=== PATIENT | female | born 1975 | race Caucasian/White ===

== ENCOUNTER 2019-11-28 07:02 | Day surgery (SDC) | payer BC ==
[~2019-11-28 07:02] MED LIST: Lactated Ringers 1,000 ML IV SCH; Lidocaine 1%/Sod Bicarbonate in NS 8.4% 1 ML Syringe IDERM PRN; Sodium Chloride 0.9% 10 ML Syringe FLUSH PRN
[2019-11-28] MEDS ORDERED: Bupivacaine 0.5%/EPINEPHrine 1:200,000 50 ML MDV ONE (07:13)
[2019-11-28] MEDS ORDERED: Clindamycin Phosphate in D5W 900 MG in Premix Bag 1 BAG IV ONE ×2 (07:15)
[2019-11-28] MEDS ORDERED: Propofol 200 MG/20 ML SDV ONE ×4 (07:18→10:46)
[2019-11-28] MEDS ORDERED: Midazolam 1 MG/ML 2 ML SDV ONE (07:18)
[2019-11-28] MEDS ORDERED: Lidocaine 1% 2 ML ONE ×3 (07:20→12:18)
[2019-11-28] MEDS ORDERED: Dexamethasone 4 MG/ML 5 ML MDV ONE ×2 (07:29→08:38)
[2019-11-28] MEDS ORDERED: Ondansetron 4 MG/2 ML SDV ONE (07:32)
--- NOTE | 2019-11-28 07:33 | PCM.PREANE ---
Preanesthetic Assessment - Procedure Proposed Procedure: Excision breast mass/ nodule - Allergies Allergies/Adverse Reactions: Allergies Allergy/AdvReac Type Severity Reaction Status Date / Time amoxicillin Allergy Vomiting Verified 11/18/19 12:59 Penicillins Allergy Vomiting Verified 11/18/19 12:59 PreAnesthesia Questionnaire HEENT History: Reports: Sinusitis Other OB/BYN History: intermenstrual bleeding Psychiatric History: Reports: Anxiety Other Psychiatric History: fatigue Endocrine/Metabolic History: Reports: Hypothyroidism, Vitamin D Deficiency Other Endocrine/Metabolic History: vitamin B deficiency Hematologic History: Reports: Anemia Other Hematologic History: macrocytosis Other Oncologic History: breast nodule - SUBSTANCE USE Smoking Status *Q: Never Smoker Recreational Drug Use History: No - HOME MEDS Home Medications: Home Meds Cholecalciferol (Vitamin D3) [Vitamin D3] 1 tab PO DAILY 11/27/19 [History] FA/Lycopene/Lut/MV,Ca,Iron,Min [Centrum] 1 tab PO DAILY 11/27/19 [History] Levothyroxine 150 mcg PO DAILY 11/27/19 [History] Vitamin B Complex/Folic Acid [Vitamin B Complex Tablet] 2 tab PO DAILY 11/27/19 [History] - CURRENT (IN HOUSE) MEDS Current Meds: Current Medications Lactated Ringer's (Ringers, Lactated) 1,000 mls @ 125 mls/hr IV ASDIRECTED KIMBERLY Stop: 11/28/19 23:00 Clindamycin Phosphate 900 mg/ (Premix) 50 mls @ 100 mls/hr IV ONETIME ONE Stop: 11/28/19 07:44 Lidocaine/Sodium Bicarbonate (Buffered Lidocaine 1% In Ns 8.4%) 0.25 ml IDERM ONETIME PRN PRN Reason: Prior to IV Start Stop: 11/28/19 18:00 Sodium Chloride (Saline Flush) 10 ml FLUSH ASDIRECTED PRN PRN Reason: Keep Vein Open Stop: 11/28/19 18:00 Discontinued Medications Bupivacaine HCl/Epinephrine Bitart (Marcaine 0.5%/Epinephrine 1:200,000) Confirm Administered Dose 50 ml .ROUTE .STK-MED ONE Stop: 11/28/19 07:14 Midazolam HCl (Versed 1 Mg/Ml) Confirm Administered Dose 2 mg .ROUTE .STK-MED ONE Stop: 11/28/19 07:19 Propofol (Diprivan 20 Ml) Confirm Administered Dose 400 mg .ROUTE .K-MED ONE Stop: 11/28/19 07:19
--- NOTE | 2019-11-28 07:47 | PCM.PREANE ---
Preanesthetic Assessment - Procedure Proposed Procedure: excision breast mass/ nodule - Anesthesia/Transfusion/Family Hx Anesthesia History: No Prior Anesthesia Family History of Anesthesia Reaction: No Transfusion History: No Prior Transfusion(s) Intubation History: Unknown - Review of Systems General: No Symptoms Pulmonary: No Symptoms Cardiovascular: No Symptoms Gastrointestinal: No Symptoms Neurological: No Symptoms Other: Reports: Thyroid Problems, Anxiety - Physical Assessment NPO Status Date: 11/27/19 NPO Status Time: 22:00 Height: 1.73 m ASA Class: 2 Mental Status: Alert & Oriented x3 Airway Class: Mallampati = 3 Dentition: Reports: Normal Dentition Thyro-Mental Finger Breadths: 3 Mouth Opening Finger Breadths: 4 ROM/Head Extension: Full Lungs: Clear to Auscultation, Normal Respiratory Effort, Rhonchi Cardiovascular: Regular Rate, Regular Rhythm - Allergies Allergies/Adverse Reactions: Allergies Allergy/AdvReac Type Severity Reaction Status Date / Time amoxicillin Allergy Vomiting Verified 11/18/19 12:59 Penicillins Allergy Vomiting Verified 11/18/19 12:59 - Blood Blood Available: No - Anesthesia Plan Pre-Op Medication Ordered: Other (scopalamine ) - Acknowledgements Anesthesia Type Planned: General Anesthesia Pt an Appropriate Candidate for the Planned Anesthesia: Yes Alternatives and Risks of Anesthesia Discussed w Pt/Guardian: Yes Pt/Guardian Understands and Agrees with Anesthesia Plan: Yes PreAnesthesia Questionnaire HEENT History: Reports: Sinusitis Other OB/BYN History: intermenstrual bleeding Psychiatric History: Reports: Anxiety Other Psychiatric History: fatigue Endocrine/Metabolic History: Reports: Hypothyroidism, Vitamin D Deficiency Other Endocrine/Metabolic History: vitamin B deficiency Hematologic History: Reports: Anemia Other Hematologic History: macrocytosis Other Oncologic History: breast nodule - SUBSTANCE USE Smoking Status *Q: Never Smoker Recreational Drug Use History: No - HOME MEDS Home Medications: Home Meds Cholecalciferol (Vitamin D3) [Vitamin D3] 1 tab PO DAILY 11/27/19 [History] FA/Lycopene/Lut/MV,Ca,Iron,Min [Centrum] 1 tab PO DAILY 11/27/19 [History] Levothyroxine 150 mcg PO DAILY 11/27/19 [History] Vitamin B Complex/Folic Acid [Vitamin B Complex Tablet] 2 tab PO DAILY 11/27/19 [History] - CURRENT (IN HOUSE) MEDS Current Meds: Current Medications Lactated Ringer's (Ringers, Lactated) 1,000 mls @ 125 mls/hr IV ASDIRECTED KIMBERLY Stop: 11/28/19 23:00 Clindamycin Phosphate 900 mg/ (Premix) 50 mls @ 100 mls/hr IV ONETIME ONE Stop: 11/28/19 07:44 Lidocaine/Sodium Bicarbonate (Buffered Lidocaine 1% In Ns 8.4%) 0.25 ml IDERM ONETIME PRN PRN Reason: Prior to IV Start Stop: 11/28/19 18:00 Sodium Chloride (Saline Flush) 10 ml FLUSH ASDIRECTED PRN PRN Reason: Keep Vein Open Stop: 11/28/19 18:00 Discontinued Medications Bupivacaine HCl/Epinephrine Bitart (Marcaine 0.5%/Epinephrine 1:200,000) Confirm Administered Dose 50 ml .ROUTE .STK-MED ONE Stop: 11/28/19 07:14 Dexamethasone (Dexamethasone) Confirm Administered Dose 20 mg .ROUTE .STK-MED ONE Stop: 11/28/19 07:30 Lidocaine HCl (Xylocaine-Mpf 1%) Confirm Administered Dose 4 mls @ as directed .ROUTE .STK-MED ONE Stop: 11/28/19 07:21 Midazolam HCl (Versed 1 Mg/Ml) Confirm Administered Dose 2 mg .ROUTE .STK-MED ONE Stop: 11/28/19 07:19 Ondansetron HCl (Zofran) Confirm Administered Dose 4 mg .ROUTE .STK-MED ONE Stop: 11/28/19 07:33 Propofol (Diprivan 20 Ml) Confirm Administered Dose 400 mg .ROUTE .STK-MED ONE Stop: 11/28/19 07:19 Propofol (Diprivan 20 Ml) Confirm Administered Dose 200 mg .ROUTE .STK-MED ONE Stop: 11/28/19 07:32
[2019-11-28] MEDS ORDERED: fentaNYL 100 MCG/2 ML SDV IVPUSH PRN (07:50)
[2019-11-28] MEDS ORDERED: diphenhydrAMINE 50 MG/ML SDV IVPUSH PRN (07:50)
[2019-11-28] MEDS ORDERED: Ondansetron 4 MG/2 ML SDV IVPUSH PRN (07:50)
[2019-11-28] MEDS ORDERED: Scopolamine 1.5 MG Transdermal Patch TRDERM ONE (07:51)
[2019-11-28] MEDS ORDERED: fentaNYL 100 MCG/2 ML SDV ONE (08:05)
[2019-11-28] MEDS ORDERED: HYDROmorphone 1 MG/ML Syringe ONE (08:37)
[2019-11-28] MEDS ORDERED: cloNIDine 1,000 MCG/10 ML SDV ONE (08:39)
[2019-11-28] MEDS ORDERED: Lactated Ringers 1,000 ML ONE (08:44)
--- NOTE | 2019-11-28 09:23 | PCM.POSTAN ---
POST ANESTHESIA ASSESSMENT - MENTAL STATUS Mental Status: Oriented - VITAL SIGNS Vital Signs: Last Vital Signs 0915 117/59 96 o2 98 hr 14 rr 97.8 Temp 36.8 C 11/28/19 07:05 Pulse 82 11/28/19 07:05 Resp 16 11/28/19 07:05 BP 125/75 11/28/19 07:05 Pulse Ox 97 11/28/19 07:05 - RESPIRATORY Respiratory Status: Respiratory Rate WNL, Airway Patent, O2 Saturation Stable, Supplemental Oxygen - CARDIOVASCULAR CV Status: Pulse Rate WNL, Blood Pressure Stable - GASTROINTESTINAL GI Status: No Symptoms - POST OP HYDRATION Hydration Status: Adequate & Stable
[2019-11-28] MEDS ORDERED: Ketorolac 15 MG/ML SDV IVPUSH ONE (09:30)
--- NOTE | 2019-11-28 11:42 | PCM48HPAN ---
Post Anesthesia Note - EVALUATION WITHIN 48HRS OF ANESTHETIC Vital Signs in Normal Range: Yes Patient Participated in Evaluation: Yes Respiratory Function Stable: Yes Airway Patent: Yes Cardiovascular Function Stable: Yes Hydration Status Stable: Yes Pain Control Satisfactory: Yes Nausea and Vomiting Control Satisfactory: Yes Mental Status Recovered: Yes Vital Signs: Last Vital Signs Temp 36.4 C 11/28/19 11:14 Pulse 86 11/28/19 11:14 Resp 16 11/28/19 11:14 BP 121/58 L 11/28/19 11:14 Pulse Ox 97 11/28/19 11:14
--- NOTE | 2019-11-29 08:29 | PCM.PRNOTE ---
- Free Text/Narrative Note: Date: 11/28/2019 Operation: excisional biopsy of right breast lesion Indication: right breast abnormality detected on screening with core biopsy showing fibroproliferative lesion measuring 2 cm in diameter Surgeon: Suleiman Rosales MD Findings: Intraoperative ultrasound used to localize well circumscribed hypoechoic lesion deep to the nipple on the right side. Detailed Report: The patient was taken to the OR and placed supine. Time out was performed. The patient underwent LMA anesthesia. The right chest was prepped and draped in sterile fashion. Ultrasound was used to localize the lesion, which measured about 2 cm in diameter and was found to be posterior to and slightly medial with respect to the nipple-areolar complex. A curvilinear incision was made at the upper inner aspect of the areola, over the site of the lesion. Skin flaps were raised, and a combination of monopolar energy and sharp dissection with the scalpel was used to excise the lesion with a rim of normal appearing parenchymal tissue. The lesion was palpable within the specimen. Silk suture was placed to tita the superior and lateral aspects of the specimen. The wound was hemostatic. Irrigation with sterile water was used. The wound was closed with several interrupted deep dermal 3-0 vicryl sutures and a running subcuticular 4-0 vicryl suture. The wound was dressed with dermabond. A total of 20 cc 0.5% marcaine with epinephrine was used for local anesthesia at the incision site. The patient tolerated the procedure well.
== END 2019-11-28 12:10 | disposition home or self-care (01) ==
LOC: JD.SDS 07:02
PROVIDERS: ATTEND Surgery
DX: D24.1 Benign neoplasm of right breast (principal); F41.9 Anxiety disorder, unspecified; E03.9 Hypothyroidism, unspecified; E66.3 Overweight; Z88.0 Allergy status to penicillin; Z79.890 Hormone replacement therapy; Z79.899 Other long term (current) drug therapy; Z68.33 Body mass index [BMI] 33.0-33.9, adult
CPT/HCPCS: 19120; 81025; A9270; J0735; J1100; J1170; J1885; J2001; J2250; J2405; J2704; J3010; J3490; J7120; 00840